=== PATIENT | male | born 1970 | race Caucasian/White ===

== ENCOUNTER 2017-03-17 23:36 | Emergency (ER) | payer MEDICAID ==
[~2017-03-17] VITALS: Ht 162.6 cm; Wt 71.5 kg
[2017-03-17 23:39] VITALS: Ht 162.6 cm; Wt 71.5 kg
[2017-03-18] MEDS ORDERED: ACETAMINOPHEN 500 MG TAB PO STA (00:06)
[2017-03-18] MEDS ORDERED: KETOROLAC 60 MG INJ IM STA (00:06)
[2017-03-18] MEDS ORDERED: IBUP-1542 PO (00:20)
[2017-03-18] MEDS ORDERED: ACET500C5 PO (00:20)
[2017-03-18] MEDS ORDERED: PEN500 PO (00:20)
[2017-03-18] MEDS ORDERED: PENICILLIN V K 250 MG TAB PO ONE (00:30)
--- NOTE | 2017-03-18 00:33 | ERD ---
ER Documentation Chief Complaint Date/Time DATE: 03/18/17 TIME: 00:31 Chief Complaint sore throat w/ fever x 4 days HPI 46-year-old male presents here in emergency department for complaints of sore throat and fever for 4 days. Patient describes the sore throat as burning pain, 6/10 scale, is worse upon swallowing accompanied with fever. Patient did not take any medications to help with symptoms. Patient denies any sick contacts. Patient denies any stridor or shortness of breath. ROS All systems reviewed and are negative except as per history of present illness. Medications Home Meds Active Scripts Penicillin V Potassium* (Penicillin V K*) 500 Mg Tab, 500 MG PO QID for 10 Days , #39 TAB Prov:CARLOTA BABIN FINISH CARPENTER 03/18/17 Acetaminophen* (Tylophen*) 500 Mg Capsule, 1 CAP PO Q6H Y for PAIN AND OR ELEVATED TEMP, #20 CAP Prov:CARLOTA BABIN FINISH CARPENTER 03/18/17 Ibuprofen* (Motrin*) 600 Mg Tab, 600 MG PO Q6H Y for PAIN AND OR ELEVATED TEMP, #30 TAB Prov:CARLOTA BABIN FINISH CARPENTER 03/18/17 Allergies Allergies: Coded Allergies: No Known Allergy (Unverified , 02/14/15) PMhx/Soc History of Surgery: Yes (HERNIA SX) Anesthesia Reaction: No Hx Neurological Disorder: No Hx Respiratory Disorders: No Hx Cardiac Disorders: No Hx Psychiatric Problems: No Hx Miscellaneous Medical Probl: Yes (hernia) Hx Alcohol Use: No Hx Substance Use: No Hx Tobacco Use: No Smoking Status: Never smoker FmHx Family History: No coronary disease, No diabetes, No other Physical Exam Vitals Vital Signs Date Time Temp Pulse Resp B/P Pulse Ox O2 Delivery O2 Flow Rate FiO2 03/18/17 01:13 100.6 99 20 132/77 98 03/17/17 23:56 102.3 03/17/17 23:39 103.5 104 20 167/90 98 Physical Exam GENERAL: The patient is well developed and appropriate for usual state of health, in no apparent distress. HEENT: Atraumatic. Ears: Normal tympanic membrane, no erythema or bulging. No ear canal swelling. No ear discharge. Nose: normal nasal turbinates, no erythema or swelling. Normal nasal discharge. Throat: oropharynx erythematous with +1 tonsillar swelling and tonsillar exudates noted. No lymphadenopathy. CHEST: Clear to auscultation bilaterally. There are no rales, wheezes or rhonchi. HEART: Regular rate and rhythm. No murmurs, clicks, rubs or gallops. No S3 or S4. ABDOMEN: Soft, nontender and nondistended. Good bowel sounds. No rebound or guarding. No gross peritonitis. No gross organomegaly or masses. No Bui sign or McBurney point tenderness. BACK: No midline or flank tenderness. EXTREMITIES: Equal pulses bilaterally. There is no peripheral clubbing, cyanosis or edema. No focal swelling or erythema. Full range of motion. Grossly neurovascularly intact. NEURO: Alert and oriented. Cranial nerves 2-12 intact. Motor strength in all 4 extremities with 5/5 strength. Sensation grossly intact. Normal speech and gait. SKIN: There is no apparent rash or petechia. The skin is warm and dry. HEMATOLOGIC AND LYMPHATIC: There is no evidence of excessive bruising or lymphedema. No gross cervical, axillary, or inguinal lymphadenopathy. Results 24 hrs Current Medications Medications (Trade) Dose Ordered Sig/Palomo Route PRN Reason Start Time Stop Time Status Last Admin Dose Admin Ketorolac Tromethamine (Toradol) 60 mg ONCE STAT IM 03/18/17 00:06 03/18/17 00:07 DC 03/18/17 00:25 Acetaminophen (Tylenol Tab) 1,000 mg ONCE STAT PO 03/18/17 00:06 03/18/17 00:07 DC 03/18/17 00:25 Penicillin V Potassium (Penicillin V K) 500 mg ONCE ONCE PO 03/18/17 00:30 03/18/17 00:31 DC 03/18/17 00:32 Patient was given medication for pain here in emergency department, after treatment, patient verbalized feeling much better. Patient's pain is improved.Patient was given medicines for fever control here in the emergency department. After treatment, patient temperature improved and lower. Patient appears well and is hemodynamically stable. First dose of penicillin V potassium was given here in emergency department, tolerated medication well. Procedures/MDM Vital decision making: Patient's symptoms of likely consistent with strep throat. No symptoms of peritonsillar abscess, epiglottitis, laryngitis, no symptoms of any oral airway obstruction. No symptoms of sepsis at this time. Patient presents hemodynamically stable. Patient was given for Pen-VK, ibuprofen , Tylenol, is advised to do saltwater gargles, rest, take medications as prescribed. Patient is advised to return to emergency department for any worsening symptoms. Follow-up with primary care doctor in 2-3 days for reevaluation of symptoms. Departure Diagnosis: Primary Impression: Strep throat Condition: Stable Patient Instructions: Strep Throat CARLOTA BABIN NP March 18, 2017 00:33
[2017-03-18 01:13] VITALS: BP 132/77; PULSE 99; RESP 20; TEMP 100.6
[2017-03-19] MEDS ORDERED: AMOX250S25 PO (14:41)
[2017-03-19] MEDS ORDERED: HYDR15SO8 PO (14:41)
== END 2017-03-18 01:13 | disposition home or self-care (01) ==
LOC: FTE 23:36
DX: J02.0 Streptococcal pharyngitis (principal)
CPT/HCPCS: J1885; Z7610

== ENCOUNTER 2017-03-19 12:37 | Emergency (ER) | payer MEDICAID ==
[~2017-03-19] VITALS: Ht 160 cm; Wt 69.5 kg
[~2017-03-19 12:37] MED LIST: ACET500C5 PO; IBUP-1542 PO; PEN500 PO
[2017-03-19 12:49] VITALS: Ht 160 cm; Wt 69.5 kg
[2017-03-19] MEDS ORDERED: SOD CHLORIDE 0.9% 1,000 ML IV STA (13:02)
[2017-03-19] MEDS ORDERED: KETOROLAC 30 MG INJ IV STA (13:02)
[2017-03-19] MEDS ORDERED: DEXAMETHASONE 10 MG/ML 1 ML INJ IV STA (13:02)
[2017-03-19] MEDS ORDERED: CEFTRIAXONE 1 GM/50 ML (PMX) 50 ML IVPB ONE (13:30)
[2017-03-19] MEDS ORDERED: LIDOCAINE 2% VISC 15 ML CUP PO ONE (13:30)
[2017-03-19] MEDS ORDERED: SOD CHLORIDE 0.45% 1,000 ML IV ONE (13:45)
[2017-03-19] MEDS ORDERED: IBUPROFEN LIQUID (PED) 20 MG/ML CUP PO STA (14:02)
--- NOTE | 2017-03-19 14:37 | ERD ---
ER Documentation Chief Complaint Date/Time DATE: 03/19/17 TIME: 14:34 Chief Complaint FEVER SORE THROAT "TONSIL PAIN" X5DAYS LAST TOOK MOTRIN 0600 HPI This is a 46-year-old male presents to the emergency room for evaluation of fever and a sore throat and pain in his tonsils. He states he was diagnosed with a tonsil infection approximately 5 days ago and did take Motrin this morning and has been on penicillin VK without relief. The patient came to the ER for evaluation of a sore throat and his fever. The patient states that he is able to swallow his secretions however he does state it hurts ROS All systems reviewed and are negative except as per history of present illness. Medications Home Meds Active Scripts Penicillin V Potassium* (Penicillin V K*) 500 Mg Tab, 500 MG PO QID for 10 Days , #39 TAB Prov:CARLOTA BABIN NP 03/18/17 Acetaminophen* (Tylophen*) 500 Mg Capsule, 1 CAP PO Q6H Y for PAIN AND OR ELEVATED TEMP, #20 CAP Prov:CARLOTA BABIN NP 03/18/17 Ibuprofen* (Motrin*) 600 Mg Tab, 600 MG PO Q6H Y for PAIN AND OR ELEVATED TEMP, #30 TAB Prov:CARLOTA BABIN NP 03/18/17 Allergies Allergies: Coded Allergies: No Known Allergy (Unverified , 02/14/15) PMhx/Soc History of Surgery: Yes (HERNIA SX) Anesthesia Reaction: No Hx Neurological Disorder: No Hx Respiratory Disorders: No Hx Cardiac Disorders: No Hx Psychiatric Problems: No Hx Miscellaneous Medical Probl: Yes (hernia) Hx Alcohol Use: No Hx Substance Use: No Hx Tobacco Use: No Smoking Status: Never smoker Physical Exam Vitals Vital Signs Date Time Temp Pulse Resp B/P Pulse Ox O2 Delivery O2 Flow Rate FiO2 03/19/17 13:24 Nasal Cannula 2 03/19/17 12:49 101.2 102 20 149/92 96 Physical Exam Const: No acute distress Head: Atraumatic Eyes: Normal Conjunctiva ENT: Pharyngeal erythema with white visible exudates noted over both tonsils diffusely, no pharyngeal edema, normal External Ears, Nose and Mouth. Neck: Full range of motion..~ No meningismus. Resp: Clear to auscultation bilaterally Cardio: Tachycardic Abd: Soft, non tender, non distended. Normal bowel sounds Skin: No petechiae or rashes Back: No midline or flank tenderness Ext: No cyanosis, or edema Neur: Awake and alert Psych: Normal Mood and Affect Results 24 hrs Current Medications Medications (Trade) Dose Ordered Sig/Palomo Route PRN Reason Start Time Stop Time Status Last Admin Dose Admin Sodium Chloride (NS) 1,000 ml @ 1,000 mls/hr Q1H STAT IV 03/19/17 13:02 03/19/17 14:01 DC 03/19/17 13:19 Dexamethasone (Decadron) 10 mg ONCE STAT IV 03/19/17 13:02 03/19/17 13:04 DC 03/19/17 13:15 Ketorolac Tromethamine 30 mg 30 mg ONCE STAT IV 03/19/17 13:02 03/19/17 13:04 DC 03/19/17 13:15 Ceftriaxone Sodium (Rocephin) 50 ml @ 100 mls/hr ONCE ONCE IVPB 03/19/17 13:30 03/19/17 13:59 DC 03/19/17 13:16 Lidocaine 15 ml 15 ml ONCE ONCE PO 03/19/17 13:30 03/19/17 13:31 DC 03/19/17 13:16 Sodium Chloride (1/2 NS) 1,000 ml @ 250 mls/hr Q4H ONCE IV 03/19/17 13:45 03/19/17 17:44 Ibuprofen (Motrin Liquid (Ped)) 400 mg ONCE STAT PO 03/19/17 14:02 03/19/17 14:03 DC Procedures/[facility] This 46-year-old male presents to the emergency room for evaluation of a fever and a sore throat. When I evaluated this patient I did note he had pharyngeal erythema with visible exudates diffusely over both tonsils. This patient did have an IV placed and I did give this patient 10 mg of Decadron, 1 L of normal saline, 1 L of D5 half-normal saline, 30 mg of IV Toradol and 1 g of Rocephin. The patient was also given viscous lidocaine p.o., and a pulmonary evaluation he does state that his throat is feeling better. The patient is able to tolerate a liquid Motrin at this time and he will be discharged home with a prescription for Lortab elixir, and liquid Augmentin for strep pharyngitis. I advised the patient to return to the ER if symptoms have not improved or if they have progressively gotten worse over the next 48 hours and he verbalized understanding. Departure Diagnosis: Primary Impression: Strep pharyngitis Additional Impression: Fever Condition: Stable SANDI BEAR DO March 19, 2017 14:37
[2017-03-19] MEDS ORDERED: AMOX250S25 PO (14:41)
[2017-03-19] MEDS ORDERED: HYDR15SO8 PO (14:41)
[2017-03-19 15:39] VITALS: BP 123/72; PULSE 90; RESP 18; TEMP 98.8
== END 2017-03-19 15:41 | disposition home or self-care (01) ==
LOC: FTE 12:37
DX: J02.0 Streptococcal pharyngitis (principal)
CPT/HCPCS: 96374; 96375; J0696; J1100; J1885; J7030; Z7502; Z7610

== ENCOUNTER 2017-03-21 19:52 | Emergency (ER) | payer MEDICAID ==
[~2017-03-21] VITALS: Ht 160 cm; Wt 68.5 kg
[~2017-03-21 19:52] MED LIST changes: +AMOX250S25 PO; +HYDR15SO8 PO
[2017-03-21 20:32] VITALS: Ht 160 cm; Wt 68.5 kg
[2017-03-21] MEDS ORDERED: DEXAMETHASONE 10 MG/ML 1 ML INJ IM ONE (21:30)
[2017-03-21] MEDS ORDERED: ACET500C5 PO (21:38)
[2017-03-21] MEDS ORDERED: ACETAMINOPHEN 500 MG TAB PO STA (21:44)
--- NOTE | 2017-03-21 21:44 | ERD ---
ER Documentation Chief Complaint Date/Time DATE: 03/21/17 TIME: 21:[address] and fever x11 days, On PO antibiotics. Possible Strep throat HPI This is a 46-year-old male who presents with sore throat that he has had for 11 days. He recently completed amoxicillin with no improvement and is currently on his third day of Augmentin. He is came today because he still has a fever. He has not taking any Tylenol but has been taking Motrin. He also states that since he has been taking antibiotics that he has had some dark stools and is not sure if there is blood in it. Denies abdominal pain. He is tolerating oral intake. ROS All systems reviewed and are negative except as per history of present illness. Medications Home Meds Active Scripts Acetaminophen* (Tylophen*) 500 Mg Capsule, 2 CAP PO Q8H Y for PAIN AND OR ELEVATED TEMP, #20 CAP Prov:REUBEN FARIA PA-C 03/21/17 Amoxicillin/Potassium Clav* (Augmentin*) 250 Mg/5 Ml Susp.recon, 10 ML PO Q8 for 10 Days Prov:SANDI BEAR DO 03/19/17 Hydrocodone Bit-Acetaminophen* (Lortab* Liq) 7.5 Mg-325 Mg/15 Ml Solution, 5 ML PO Q6H Y for PAIN LEVEL 6-10, #60 ML Prov:SANDI BEAR DO 03/19/17 Penicillin V Potassium* (Penicillin V K*) 500 Mg Tab, 500 MG PO QID for 10 Days , #39 TAB Prov:CARLOTA BABIN NP 03/18/17 Acetaminophen* (Tylophen*) 500 Mg Capsule, 1 CAP PO Q6H Y for PAIN AND OR ELEVATED TEMP, #20 CAP Prov:CARLOTA BABIN NP 03/18/17 Ibuprofen* (Motrin*) 600 Mg Tab, 600 MG PO Q6H Y for PAIN AND OR ELEVATED TEMP, #30 TAB Prov:CARLOTA BABIN EQUIPMENT DETAILER 03/18/17 Allergies Allergies: Coded Allergies: No Known Allergy (Unverified , 02/14/15) PMhx/Soc History of Surgery: Yes (HERNIA SX) Anesthesia Reaction: No Hx Neurological Disorder: No Hx Respiratory Disorders: No Hx Cardiac Disorders: No Hx Psychiatric Problems: No Hx Miscellaneous Medical Probl: Yes (hernia) Hx Alcohol Use: No Hx Substance Use: No Hx Tobacco Use: No Smoking Status: Never smoker FmHx Family History: No diabetes Physical Exam Vitals Vital Signs Date Time Temp Pulse Resp B/P Pulse Ox O2 Delivery O2 Flow Rate FiO2 03/21/17 20:32 100.4 105 85 106/59 100 Physical Exam General: well developed, well nourished, alert, nontoxic, no distress Head: normocephalic, atraumatic Eyes: PERRL, normal conjunctiva Neck: Supple, nontender, no lymphadenopathy, no midline tenderness Ears: no tenderness over mastoids bilaterally, TMs nonerythematous, no exudates in canal Oropharynx: Bilateral tonsillar erythema and edema with scant exudates, uvula midline no kissing tonsils Respiratory: Clear to auscaultation bilaterally, speaks in full sentences, no use of accesory muscles or labored breathing, no rales, ronchi, or wheezing Cardiovascular: RRR, No murmurs GI: soft, non tender, non distended, negative murphys sign, negative mcburneys point tenderness, no cva tenderness bilaterally, no rebound or guarding rectal: Hemoccult test negative Results 24 hrs Current Medications Medications (Trade) Dose Ordered Sig/Palomo Route PRN Reason Start Time Stop Time Status Last Admin Dose Admin Dexamethasone (Decadron) 10 mg ONCE ONCE IM 03/21/17 21:30 03/21/17 21:31 DC 03/21/17 21:24 Procedures/MDM This 46-year-old male is currently being treated with Augmentin for pharyngitis most likely strep. Low-grade temperature 100.4 and he was given Tylenol here before being discharged. He was concerned that he had dark stools and was not sure there is blood in it however I did a Hemoccult test here and was negative. He was given a shot of Decadron before being discharged with instructions to continue to take his antibiotics and Tylenol and Motrin as prescribed. I doubt peritonsillar abscess. Recommended this patient follow up with her primary care doctor within 48 hours or return to the emergency room for any worsening of symptoms. However this time I do believe there is suitable for outpatient management. I answered all their questions and they agreed with the plan and were discharged home. Departure Diagnosis: Primary Impression: Pharyngitis Condition: Stable Patient Instructions: Pharyngitis, Strep (Presumed) Additional Instructions: Call your primary care doctor TOMORROW for an appointment during the next 1-2 days.See the doctor sooner or return here if your condition worsens before your appointment time. REUBEN FARIA PA-C March 21, 2017 21:44
[2017-03-21 21:49] VITALS: BP 106/59; RESP 85; TEMP 99.8
== END 2017-03-21 21:56 | disposition home or self-care (01) ==
LOC: FTE 19:52
DX: J02.9 Acute pharyngitis, unspecified (principal)
CPT/HCPCS: 96372; J1100; Z7502; Z7610